=== PATIENT | male | born 1990 | race Caucasian/White ===

== ENCOUNTER 2017-06-20 19:26 | Emergency (ER) | payer BC, OTHER ==
[~2017-06-20] VITALS: Ht 175.3 cm; Wt 87.0 kg
[~2017-06-20 19:26] MED LIST: CELE200C PO; DESV100T PO; GABA300C10 PO; HYDR-3341 PO
[2017-06-20] MEDS ORDERED: SERT25TA PO (19:33)
[2017-06-20] MEDS ORDERED: SODIUM CHLORIDE 0.9% 1,000ML IVBOLUS ONE (20:00)
[2017-06-20] MEDS ORDERED: SODIUM CHLORIDE FLUSH 10ML SYR IVF ONE (20:00)
[2017-06-20 20:18] LABS: BASOPHILS # (AUTO) 0.06 x10^3/uL (0-0.1); BASOPHILS % (AUTO) 1 % (0-1); EOSINOPHILS # (AUTO) 1.08 x10^3/uL (0-0.4); EOSINOPHILS % (AUTO) 11 % (1-7); LYMPHOCYTES # (AUTO) 2.66 x10^3/uL (1-3.4); LYMPHOCYTES % (AUTO) 27 % (22-44); MD NO; MEAN CORPUSCULAR HEMOGLOBIN 31.1 pg (27.5-34.5); MEAN CORPUSCULAR HGB CONC 34.9 g/dL (33.2-36.2); MEAN CORPUSCULAR VOLUME 89.1 fL (81-97); MEAN PLATELET VOLUME 8.7 fL (7.4-10.4); MONOCYTES # (AUTO) 0.89 x10^3/uL (0.2-0.8); MONOCYTES % (AUTO) 9 % (2-9); NEUTROPHILS # (AUTO) 5.24 x10^3/uL (1.8-6.8); NEUTROPHILS % (AUTO) 53 % (42-75); PLATELET COUNT 227 x10^3/uL (130-400); RED BLOOD COUNT 5.09 x10^6/uL (4.38-5.82)
[2017-06-20 20:25] LABS: ALBUMIN 3.8 g/dL (3.4-5.0); ANION GAP 7 mmol/L (5-15); CALCIUM 8.9 mg/dL (8.5-10.1); CHLORIDE 101 mmol/L (98-107); CREATININE 0.98 mg/dL (0.7-1.3)
[2017-06-20 21:01] VITALS: BP 134/85
== END 2017-06-20 21:23 | disposition home or self-care (01) ==
LOC: ED 21:00
DX: R56.9 Unspecified convulsions (principal)
CPT/HCPCS: 36415; 70450; 71010; 80048; 80307; 82040; 85025; 93005; 96360; 99285; J7030; G0479